=== PATIENT | male | born 1945 | race Caucasian/White ===

== ENCOUNTER 2024-09-24 05:15 | Emergency (ER) | payer MEDICARE, OTHER ==
[2024-09-24 05:53] VITALS: BP 107/61; PULSE 58
== END 2024-09-24 06:22 | disposition home or self-care (01) ==
LOC: VM.ED 05:15
DX: J06.9 Acute upper respiratory infection, unspecified (principal); Z79.82 Long term (current) use of aspirin; Z79.899 Other long term (current) drug therapy
CPT/HCPCS: 99283